=== PATIENT | female | born 1970 | race Caucasian/White ===

== ENCOUNTER 2020-09-01 14:10 | Outpatient (CLI) | payer BC ==
--- NOTE | 2020-09-01 15:22 | CT ---
CT chest noncontrast low-dose screening HISTORY: Tobacco abuse. COMPARISON: 01/12/2012. FINDINGS: Lungs are well-inflated. No nodules evident. Minimal peripheral wedge-shaped groundglass op acity in the superior segment left lower lobe. No pleural fluid or pneumothorax. Old healed fractures involve the anterior lateral aspect of left ribs 5 and 6. There is calcification within the coronary arteries. Lack of contrast limits evaluation of the soft tissues. Incidental note of bovine origin of the great vessels at the aortic arch. Evidence of prior cholecystectomy within the partially visualized upper abdomen. IMPRESSION : Lung RADS category 2. Benign findings. Suggest routine screening. Atherosclerosis with coronary artery calcification.
== END 2020-09-01 14:11 | disposition home or self-care (01) ==
LOC: BICCT 14:10
PROVIDERS: ATTEND Nurse Practitioner Family
DX: Z12.2 Encounter for screening for malignant neoplasm of respiratory organs (principal); F17.210 Nicotine dependence, cigarettes, uncomplicated; R06.02 Shortness of breath; I25.10 Atherosclerotic heart disease of native coronary artery without angina pectoris
CPT/HCPCS: G0297

== ENCOUNTER 2020-09-10 14:24 | Outpatient (CLI) | payer BC ==
--- NOTE | 2020-09-10 15:11 | MMO ---
Bilateral MAMMO Bilat Diag [facility]. CLINICAL HISTORY: Patient is 50 years old and is seen for diagnostic exam,lump or thickening and pain in the left breast. The patient has the following family history of breast cancer: maternal grandmother, at age 70. The patient has no personal history of cancer. VIEWS: The views performed were: bilateral craniocaudal with tomosynthesis; bilateral mediolateral oblique with tomosynthesis; and bilateral mediolateral with tomosynthesis. FILMS COMPARED: The present examination has been compared to prior imaging studies performed at [facility] [place] on 10/30/2006, 11/30/2011 and 09/10/2020, and at [facility] on 01/21/1992. This study has been interpreted with the assistance of computer-aided detection. MAMMOGRAM FINDINGS: There are scattered fibroglandular densities. There are benign appearing calcifications seen in both breasts. There are no suspicious masses, suspicious calcifications, or new areas of architectural distortion. IMPRESSION: THERE IS NO MAMMOGRAPHIC EVIDENCE OF MALIGNANCY. A ROUTINE FOLLOW-UP MAMMOGRAM IN 1 YEAR IS RECOMMENDED. THE RESULTS OF THIS EXAM WERE SENT TO THE PATIENT. ACR BI-RADS Category 2 - Benign finding MAMMOGRAPHY NOTE: 1. A negative mammogram report should not delay a biopsy if a dominant of clinically suspicious mass is present. 2. Approximately 10% to 15% of breast cancers are not detected by mammography. 3. Adenosis and dense breasts may obscure an underlying neoplasm. Reported by: CLIVE MOON MD Electonically Signed: [id number]
--- NOTE | 2020-09-10 15:14 | ULT ---
ULTRASOUND LEFT BREAST: 09/10/20 INDICATION: Ultrasound left breast performed at 3, 4, 5, and 6 o'clock positions to assess questioned palpable ab normality as noted by the patient. No sonographic abnormality identified. IMPRESSION: Ultrasound findings of BIRADS 1: Negative Routine annual screening mammography (for women over age 40) POS: OFF
== END 2020-09-10 14:25 | disposition home or self-care (01) ==
LOC: BICMAMMO 14:24
PROVIDERS: ATTEND Nurse Practitioner Family
DX: N63.20 Unspecified lump in the left breast, unspecified quadrant (principal); N64.4 Mastodynia
CPT/HCPCS: 77066; G0279

== ENCOUNTER 2021-03-01 16:11 | Outpatient (CLI) | payer BC | END 2021-03-01 16:12 | disposition home or self-care (01) | LOC: RAD-FRANK 16:11 | PROVIDERS: ATTEND Nurse Practitioner Family | DX: M79.671 Pain in right foot (principal); S92.514A Nondisplaced fracture of proximal phalanx of right lesser toe(s), initial encounter for closed fracture ==

== ENCOUNTER 2021-04-25 13:11 | Outpatient (CLI) | payer BC | END 2021-04-25 13:12 | disposition home or self-care (01) | LOC: BICULT 13:11 | PROVIDERS: ATTEND Nurse Practitioner Family | DX: I10 Essential (primary) hypertension (principal); E66.01 Morbid (severe) obesity due to excess calories; F33.0 Major depressive disorder, recurrent, mild; E78.5 Hyperlipidemia, unspecified; R00.0 Tachycardia, unspecified; R06.02 Shortness of breath; E04.1 Nontoxic single thyroid nodule | CPT/HCPCS: 76536 ==

== ENCOUNTER 2022-03-21 12:58 | Outpatient (CLI) | payer BC | END 2022-03-21 12:59 | disposition home or self-care (01) | LOC: BICMAMMO 12:58 | PROVIDERS: ATTEND Nurse Practitioner Family | DX: Z12.31 Encounter for screening mammogram for malignant neoplasm of breast (principal); Z80.3 Family history of malignant neoplasm of breast | CPT/HCPCS: 77063; 77067 ==

== ENCOUNTER 2022-06-07 10:32 | Outpatient (CLI) | payer BC | END 2022-06-07 10:33 | disposition home or self-care (01) | LOC: BICULT 10:32 | PROVIDERS: ATTEND Nurse Practitioner Family | DX: E04.1 Nontoxic single thyroid nodule (principal) | CPT/HCPCS: 76536 ==

== ENCOUNTER 2022-09-01 09:34 | Outpatient (CLI) | payer BC | END 2022-09-01 09:35 | disposition home or self-care (01) | LOC: BICRAD 09:34 | PROVIDERS: ATTEND Nurse Practitioner Family | DX: M54.50 Low back pain, unspecified (principal); M47.816 Spondylosis without myelopathy or radiculopathy, lumbar region; M43.16 Spondylolisthesis, lumbar region | CPT/HCPCS: 72100 ==

== ENCOUNTER 2024-01-11 10:59 | Emergency (ER) | payer BC ==
[2024-01-11] MEDS ORDERED: HYDROcodone/Acetaminophen 5/325 mg Tablet ONE (11:43)
[2024-01-11 11:49] LABS: #Eosinphils 0.1 thou/uL (0.0-0.7); #Monocytes 0.8 thou/uL (0.11-0.59); #Neutrophils 7.5 thou/uL (1.40-6.50); %Basophils 0.3 % (0.0-1.0); %Eosinophils 0.5 % (0.0-10.0); %Lymphocytes 27.5 % (21.0-51.0); %Monocytes 7.2 % (0.0-10.0); %Neutrophils 64.2 % (42.0-75.0); Hematocrit 43.7 % (36.0-47.0); Hemoglobin 14.9 g/dL (12.0-16.0); Mean Corpuscular HGB CONC 34.1 g/dL (32.0-36.0); Mean Corpuscular Hemoglobin 30.3 pg (27.0-31.0); Mean Corpuscular Volume 88.8 fl (78.0-98.0); Mean Platelet Volume 9.4 fL (7.4-10.4); Platelet Count 285 10x3/uL (130-400); RBC Distribution Width 12.6 % (11.5-14.5); Red Blood Cell (RBC) Count 4.92 mill/uL (4.20-5.40); White Blood Cell (WBC) Count 11.7 10x3/uL (4.8-10.8)
[2024-01-11 12:12] LABS: ALT (SGPT) 22 U/L (8-55); AST (SGOT) 18 U/L (5-34); Albumin 4.4 g/dL (3.5-5.0); Alkaline Phosphatase 69 U/L (40-110); Anion Gap 13 mmol/L (10-20); BUN (Urea Nitrogen) 16 mg/dL (9.8-20.1); Bilirubin, Total 0.4 mg/dL (0.2-1.2); Calc. Creatinine Clearance 0 mL/min (70-130); Calcium 9.9 mg/dL (7.8-10.44); Carbon Dioxide 21 mmol/L (22-29); Chloride 108 mmol/L (98-107); Estimated GFR 82; Globulin 3.9 g/dL (2.4-3.5); Glucose 111 mg/dL (70-105); Protein, Total 8.3 g/dL (6.0-8.3); Sodium 138 mmol/L (136-145)
[2024-01-11 12:15] LABS: Bacteria/HPF None Seen HPF (None Seen); Bilirubin Negative (Negative); Blood, Urine Negative (Negative); CAUTI Indications for Culture Spinal Cord Injury; Clarity Clear (Clear); Glucose, Urine (Dipstick) Normal (Negative); Ketone, Urine Negative (Negative); Leukocyte Negative Leu/uL (Negative); Nitrite Negative (Negative); Protein, Urine (Dipstick) Negative (Neg-Trace); RBC/HPF 0-3 HPF (0-3); Specific Gravity, Urine 1.015 (1.002-1.036); Squamous Epithelial 0-3 HPF (0-3); Urobilinogen Normal mg/dL (Less than 2); WBC/HPF None Seen HPF (0-3); pH, Urine 6.5 (5.0-9.0)
[2024-01-11 12:21] LABS: Urine Culture Reflex No No
[2024-01-11] MEDS ORDERED: Dexamethasone 10 MG/ML VIAL ONE (15:32)
== END 2024-01-11 15:37 | disposition home or self-care (01) ==
LOC: ERS 10:59
DX: M48.061 Spinal stenosis, lumbar region without neurogenic claudication (principal); I10 Essential (primary) hypertension; E78.00 Pure hypercholesterolemia, unspecified; Z55.6 Problems related to health literacy; Z79.899 Other long term (current) drug therapy
CPT/HCPCS: 72158; 80053; 81001; 85025; 86140; 96374; J1100

== ENCOUNTER 2024-01-23 06:36 | Observation (INO) | payer BC ==
[2024-01-22 10:05] VITALS: BMI 33.5
[2024-01-23] MEDS ORDERED: PROPOFOL 20 ML ONE (07:50)
[2024-01-23] MEDS ORDERED: Fentanyl 250 MCG/5 ML VIAL ONE (07:50)
[2024-01-23 07:51] LABS: #Eosinphils 0.1 thou/uL (0.0-0.7); #Monocytes 1.2 thou/uL (0.11-0.59); #Neutrophils 8.8 thou/uL (1.40-6.50); %Basophils 0.1 % (0.0-1.0); %Eosinophils 0.8 % (0.0-10.0); %Lymphocytes 29.6 % (21.0-51.0); %Neutrophils 61.2 % (42.0-75.0); Hematocrit 39.9 % (36.0-47.0); Hemoglobin 13.1 g/dL (12.0-16.0); Mean Corpuscular HGB CONC 32.8 g/dL (32.0-36.0); Mean Corpuscular Hemoglobin 30.1 pg (27.0-31.0); Mean Corpuscular Volume 91.7 fl (78.0-98.0); Mean Platelet Volume 9.3 fL (7.4-10.4); Platelet Count 233 10x3/uL (130-400); RBC Distribution Width 13.3 % (11.5-14.5); Red Blood Cell (RBC) Count 4.35 mill/uL (4.20-5.40); White Blood Cell (WBC) Count 14.5 10x3/uL (4.8-10.8)
[2024-01-23] MEDS ORDERED: Rocuronium Bromide 10 MG/ML (10ML VIAL) ONE (07:51)
[2024-01-23] MEDS ORDERED: Lidocaine 1% PF 5 ML VIAL ONE (07:51)
[2024-01-23] MEDS ORDERED: Thrombin 5000 UNITS/5 ML VIAL ONE (08:02)
[2024-01-23] MEDS ORDERED: Bupivacaine 0.25% HCL 30 ML VIAL ONE (08:02)
[2024-01-23] MEDS ORDERED: EPINEPHrine 1 MG/ML VIAL ONE (08:02)
[2024-01-23] MEDS ORDERED: Midazolam HCl 2 mg/2 ml Vial ONE ×2 (08:25→13:11)
[2024-01-23] MEDS ORDERED: CEFAZOLIN 2 GM VIAL ONE (08:56)
[2024-01-23] MEDS ORDERED: Sodium Chloride 0.9% 100 ML ONE ×3 (08:56→10:21)
[2024-01-23] MEDS ORDERED: Promethazine HCl 25 MG/ML VIAL IM PRN (11:01)
[2024-01-23] MEDS ORDERED: Ondansetron HCl/PF 4 MG/2 ML Vial IVP PRN (11:01)
[2024-01-23] MEDS ORDERED: NEOSTIGMINE 3 MG/3 ML SYR 3 MG/3 ML SYRINGE ONE (11:15)
[2024-01-23] MEDS ORDERED: Glycopyrrolate 0.2 MG/ML 5 ML SYRINGE ONE (11:15)
[2024-01-23] MEDS ORDERED: fentaNYL 50 mcg/mL 1 mL Vial ONE ×5 (11:43→12:40)
[2024-01-23] MEDS ORDERED: Ketamine In 0.9 % NaCl 50 MG/5 ML SYRINGE ONE (13:12)
[2024-01-23] MEDS ORDERED: HYDROcodone/Acetaminophen 5/325 mg Tablet ONE (13:55)
[2024-01-23] MEDS ORDERED: Promethazine HCl 25 MG/ML VIAL ONE (14:12)
[2024-01-23] MEDS ORDERED: Morphine 4 MG/ML VIAL ONE (14:34)
[2024-01-23] MEDS ORDERED: Morphine 2 MG/ML VIAL ONE ×2 (14:57→15:45)
[2024-01-23] MEDS ORDERED: diphenhydrAMINE 50 MG/ML VIAL IVP PRN (15:56)
[2024-01-23] MEDS ORDERED: HYDROcodone/Acetaminophen 10/325 mg Tablet PO PRN (15:56)
[2024-01-23] MEDS ORDERED: Ondansetron PF 4 MG/2 ML Vial IVP PRN (15:56)
[2024-01-23] MEDS ORDERED: Acetaminophen 325 MG TAB PO PRN (16:27)
[2024-01-23] MEDS ORDERED: Acetaminophen 325 MG Suppository PR PRN (16:28)
[2024-01-23] MEDS ORDERED: Milk Of Magnesia 30 ML UDCUP PO PRN (16:29)
[2024-01-23] MEDS ORDERED: Mag-Al 1200 mg/1200 mg/30 ML UDCUP PO PRN (16:29)
[2024-01-23] MEDS: Dexamethasone 4 MG TAB PO SCH (17:16)
[2024-01-23] MEDS: Morphine 2 MG/ML VIAL SLOW IVP PRN (17:17)
[2024-01-23] MEDS: CEFAZOLIN 2 GM in Sodium Chloride 0.9% 100 ML IVPB SCH (17:17)
[2024-01-23] MEDS: HYDROcodone/Acetaminophen 10/325 mg Tablet PO PRN (17:18)
[2024-01-23] MEDS: Sodium Chloride 0.9% 1,000 ML IV SCH (17:26)
[2024-01-23] MEDS: Pregabalin 75 MG CAP PO SCH (20:41)
[2024-01-23] MEDS: Liothyronine Sodium 5 MCG TAB PO SCH (20:43)
[2024-01-23] MEDS: Liothyronine Sodium 25 MCG TAB PO SCH (20:44)
[2024-01-23] MEDS ORDERED: Liothyronine Sodium 5 MCG TAB PO SCH (21:00)
[2024-01-24] MEDS: Morphine 4 MG/ML VIAL SLOW IVP PRN (02:11)
[2024-01-24] MEDS: Diazepam 5 MG TAB PO SCH (06:12)
[2024-01-24] MEDS: Dexamethasone 4 MG TAB PO SCH (06:12)
[2024-01-24] MEDS: Levothyroxine 175 MCG TAB PO SCH (08:06)
[2024-01-24] MEDS: Estradiol 1 MG TAB PO SCH (08:10)
[2024-01-24] MEDS: Spironolactone 100 MG TAB PO SCH (08:10)
[2024-01-24] MEDS: BuPROPion XL 150 MG ER.TAB PO SCH (08:10)
[2024-01-24] MEDS: traZODone HCl 50 MG TAB PO SCH (08:10)
[2024-01-24] MEDS: Progesterone,Micronized 100 MG CAP PO SCH (08:11)
[2024-01-24] MEDS ORDERED: TESTOSTERONE TOP SCH (09:00)
[2024-01-24] MEDS ORDERED: Semaglutide [Ozempic] 2 MG/0.75 ML Pen.Injctr SC SCH (09:00)
[2024-01-24] MEDS: Ketorolac Tromethamine 30 MG (1 mL) VIAL IVP SCH (09:40)
[2024-01-24] MEDS: fentaNYL 25 mcg Patch TD SCH (09:41)
[2024-01-24 15:37] VITALS: BP 100/61; TEMP 97.6
== END 2024-01-24 17:43 | disposition home or self-care (01) ==
LOC: SDC 06:36 → SURG A 14:55
PROVIDERS: ADMIT Neurological Surgery; ATTEND Neurological Surgery
PROC: 0SG00J1 Fusion of Lumbar Vertebral Joint with Synthetic Substitute, Posterior Approach, Posterior Column, Open Approach (ICD-10-PCS; principal; 2024-01-24)
DX: M48.062 Spinal stenosis, lumbar region with neurogenic claudication (principal); M43.16 Spondylolisthesis, lumbar region; M54.16 Radiculopathy, lumbar region; E06.3 Autoimmune thyroiditis; K21.9 Gastro-esophageal reflux disease without esophagitis; E78.5 Hyperlipidemia, unspecified; L73.2 Hidradenitis suppurativa; Z90.49 Acquired absence of other specified parts of digestive tract; Z90.710 Acquired absence of both cervix and uterus; Z98.890 Other specified postprocedural states; F17.210 Nicotine dependence, cigarettes, uncomplicated; Z79.890 Hormone replacement therapy; Z79.899 Other long term (current) drug therapy; Z88.5 Allergy status to narcotic agent; Z88.8 Allergy status to other drugs, medicaments and biological substances
CPT/HCPCS: 85025; 93005; 93010; 96365; 96375; 96376; C1713; C1889; G0378; J0171; J0665; J1885; J2250; J2270; J2272; J2550; J2704; J3010; J3490; J7050; J8540